=== PATIENT | male | born 1995 | race Caucasian/White ===

== ENCOUNTER 2019-07-06 16:01 | Emergency (ER) | payer SELFPAY ==
[~2019-07-06] VITALS: Ht 180.3 cm; Wt 104.3 kg
[2019-07-06 16:17] VITALS: Ht 180.3 cm; Wt 104.3 kg
[2019-07-06 16:44] LABS: BASOPHIL % 0.3 % (0-2); PLATELET COUNT 252 x10^3mcL (130-400)
[2019-07-06 17:33] LABS: CALCIUM 8.7 mg/dL (8.5-10.1); CHLORIDE SERUM 102 mmol/L (98-107); CREATININE SERUM 1.2 mg/dL (0.7-1.3); GFR1 > 60 mL/min; GLUCOSE SERUM 87 mg/dL (74-106); POTASSIUM SERUM 3.7 mmol/L (3.5-5.1); SODIUM SERUM 142 mmol/L (136-145)
[2019-07-06 17:37] LABS: ALBUMIN 4.3 g/dL (3.4-5.0); ALKALINE PHOSPHATASE 75 U/L (46-116); ALT/SGPT 47 U/L (16-63); AMYLASE 48 U/L (25-115); AST/SGOT 74 U/L (15-37); BILIRUBIN TOTAL 3.17 mg/dL (0.20-1.00); LIPASE 148 IU/L (73-393); MAGNESIUM 2.4 mg/dL (1.8-2.4)
[2019-07-06 17:38] LABS: TOTAL PROTEIN, SERUM 8.6 g/dL (6.4-8.2)
[2019-07-06 20:27] LABS: UA SPECIFIC GRAVITY 1.025 (1.005-1.035); microscopic required? YES; urine erythrocyte NEGATIVE (NEGATIVE)
[2019-07-06 20:36] LABS: AMPHETAMINE QUAL UR POSITIVE (See below)
[2019-07-06 20:57] VITALS: BP 131/92
== END 2019-07-06 20:37 | disposition home or self-care (01) ==
LOC: ED 16:01
PROVIDERS: Emergency Medicine
DX: F15.10 Other stimulant abuse, uncomplicated (principal); E86.0 Dehydration; T67.5XXA Heat exhaustion, unspecified, initial encounter; X58.XXXA Exposure to other specified factors, initial encounter; Y93.89 Activity, other specified; Y92.89 Other specified places as the place of occurrence of the external cause; Y99.8 Other external cause status
CPT/HCPCS: G0480; J2405; J7030